=== PATIENT | female | born 1980 | race Caucasian/White ===

== ENCOUNTER 2019-03-11 23:46 | Emergency (ER) | payer OTHER, MEDICAID, SELFPAY ==
[2019-03-11 23:57] VITALS: BP 133/99; PULSE 99; RESP 16; TEMP 36.6; O2SAT 99; BMI 25.8
--- NOTE | 2019-03-12 00:36 | ED.RECABL ---
HPI - Recheck/Abnormal Lab/Rx General Chief Complaint: Recheck/Abnormal Lab/Rx Stated Complaint: needs med refill, states hard time focusing Time Seen by Provider: 03/12/19 00:36 Source: patient Mode of arrival: ambulatory Limitations: no limitations History of Present Illness HPI narrative: Patient is a 38-year-old female presents with a variety of complaints. She initially told nurses that she wanted medication refills of her Adderall and pain meds. And then she told me she was having worsening back pain and she wanted a pain shot. She denies numbness or tingling down her legs. She also noted to nursing that sometimes she thinks of suicide however she says she does not have any thoughts of harming herself now. Related Data Home Medications Medication Instructions Recorded Confirmed dextroamphetamine-amphetamine 30 mg PO #0 06/23/17 07/27/18 [Adderall XR] Previous Rx's Medication Instructions Recorded hydroxyzine HCl 0 mg PO Q4HP PRN #120 tab 04/06/17 promethazine 25 mg PO Q8HP PRN #30 tab 09/21/17 naproxen sodium 550 mg PO BIDCC #60 tab 09/24/17 promethazine [Phenadoz] 25 mg DC Q8HP PRN #15 supp 10/06/17 carisoprodol 350 mg PO TID PRN #30 tab 11/07/17 baclofen 10 mg PO BID #20 tab 11/09/17 chlorzoxazone 250 mg PO SEE INSTRUCTIONS PRN #15 12/05/17 tab sumatriptan succinate 50 mg PO PRN PRN #20 tab 12/05/17 topiramate 50 mg PO QDAY #30 tab 07/24/18 Allergies Allergy/AdvReac Type Severity Reaction Status Date / Time No Known Drug Allergies Allergy Verified 03/11/19 23:57 Review of Systems Review of Systems GENERAL: Denies chills, fatigue, malaise, fever, sweats, travel HEENT: Denies sinus pain, ear pain, sore throat, difficulty swallowing, neck pain RESPIRATORY: Denies dyspnea, cough, wheezing, hemoptysis, sputum. CARDIOVASCULAR: Denies chest pain, palpitations, orthopnea, edema GASTROINTESTINAL: Denies nausea, vomiting, abdominal pain, diarrhea, constipation, melena. : Denies dysuria, frequency, incontinence, hematuria, urinary retention, flank pain. MUSCULOSKELETAL: Back pain SKIN: No rash, no erythema, no pruritus NEUROLOGIC: Denies weakness, dizziness, headache, numbness, change in speech, confusion PSYCHIATRIC: No concerning psychosocial issues. 12 point review of systems is negative except for those stated above and HPI [facility] Medical History ADHD (attention deficit hyperactivity disorder) (Chronic) Anxiety (Chronic) Social History Smoking Status: Current every day smoker Social History Smoking Status: Current every day smoker Exam Initial Vital Signs Initial Vital Signs: Vital Signs Temperature 97.9 F 03/11/19 23:57 Pulse Rate 99 H 03/11/19 23:57 Respiratory Rate 16 03/11/19 23:57 Blood Pressure 133/99 H 03/11/19 23:57 Pulse Oximetry 99 03/11/19 23:57 GENERAL: Well-appearing, well-nourished and in no acute distress. CARDIOVASCULAR: peripheral pulses in tact, cap refill <2 sec RESPIRATORY: No respiratory distress, speaks in full sentences without difficulty BACK no vertebral step-offs or tenderness. Lower lumbar pain. Patient is noted to be moving around the room easily and calmly. EXTREMITIES: Normal range of motion, no clubbing or edema. Neurovascularly intact NEUROLOGICAL: Cranial nerves II through XII grossly intact. Normal gait and speech. SKIN: Warm, dry, no petechiae, no rashes or lesions. Course Orders Ordered: Discontinued Medications Ketorolac Tromethamine (Toradol) 30 mg IM NOW ONE Stop: 03/12/19 00:27 Last Admin: 03/12/19 00:38 Dose: 30 mg Vital Signs - 8 hr 03/11/19 23:57 Temperature 97.9 F Pulse Rate 99 H Respiratory Rate 16 Blood Pressure 133/99 H Pulse Oximetry 99 MDM - Recheck/Abnormal Lab/Rx MDM Narrative Medical decision making narrative: Patient does not appear in any distress she has multiple complaints. Initially aggressive with staff but cooperative with me and discharged easily. Discharge Plan Departure Patient Disposition: Home Clinical Impression: Back pain Qualifiers: Back pain location: low back pain Chronicity: chronic Back pain laterality: midline Sciatica presence: without sciatica Qualified Code(s): M54.5 - Low back pain Discharge Date/Time: 03/12/19 00:48 Interventions: ED Discharge Assessment Last Done: 03/12/19 00:47 Instructions: DI for Low Back Pain Activity Restrictions/Additional Instructions: *You have been diagnosed with acute on chronic back pain *What to do: Increase activity as tolerated may require physical therapy *Continue to take medications as directed *Follow up with your primary care provider in 2-3 days *Return to ER if you should have worsening back pain leg weakness off severe or any new, worsening or concerning symptoms Prescriptions: No Action hydroxyzine HCl 25 MG tablet PO Q4HP PRNQty: 120 RF: 0 dextroamphetamine-amphetamine [Adderall XR] 30 MG capsule,extended release 24hr 30 mg PO Qty: 0 RF: 0 promethazine 25 MG tablet 25 mg PO Q8HP PRNQty: 30 RF: 0 naproxen sodium 550 MG tablet 550 mg PO BIDCC Qty: 60 RF: 1 promethazine [Phenadoz] 25 MG suppository 25 mg DC Q8HP PRNQty: 15 RF: 0 carisoprodol 350 MG tablet 350 mg PO TID PRNQty: 30 RF: 0 baclofen 10 MG tablet 10 mg PO BID Qty: 20 RF: 0 chlorzoxazone 500 MG tablet 250 mg PO SEE INSTRUCTIONS PRNQty: 15 RF: 0 sumatriptan succinate 50 MG tablet 50 mg PO PRN PRNQty: 20 RF: 0 topiramate 50 mg tablet 50 mg PO QDAY Qty: 30 RF: 1 Referrals: Shana Vasquez DO [Physician] -
[2019-03-12] MEDS: KETOROLAC 60 MG/2 ML VIAL 30 MG IM (00:38)
--- NOTE | 2019-03-12 00:47 | PC.NURSE ---
Pt reported that I'm not suicidal anymore.
== END 2019-03-12 00:48 | disposition home or self-care (01) ==
PROVIDERS: Emergency Provider Emergency Medicine; Family Provider Family Medicine; PCP Family Medicine
DX: M54.5 Low back pain (principal)
CPT/HCPCS: 96372; 99282; 99283; J1885